=== PATIENT | male | born 1950 | race Two or more races ===

== ENCOUNTER 2024-09-22 07:30 | Day surgery (SDC) | payer OTHER, SELFPAY ==
[2024-09-21 14:34] VITALS: BMI 34.8
[2024-09-22] VITALS (11 sets, daily range): BP systolic 129–170; BP diastolic 60–92; PULSE 65–76; RESP 12–20; TEMP 36.2–36.8; O2SAT 92–99; BMI 34.7
[2024-09-22] MEDS: fentaNYL CIT INJ 50 mCg/ML AMP 2ML (ASD USE ONLY) IV (09:08)
[2024-09-22] MEDS: MIDAZOLAM INJ 1 MG/ML VIAL 2 ML (ASD USE ONLY) 2 MG IV (09:08)
--- NOTE | 2024-09-22 09:51 | SUR.PHASEII ---
0960 patient is awake, alert, breathing unlabored, s/p Colonoscopy under IV sedation, report received from Kelley LAIRD 0937 pt passed gas, will get patient ready to go home
--- NOTE | 2024-09-22 10:33 | SUR.PHASEII ---
1020 patient is awake, alert, breathing unlabored, patient able to ambulate to bathroom and pass gas, meets discharge criteria, discharge instructions given to patient and spouse, patient discharged home in wheelchair with all belongings.
== END 2024-09-22 10:20 | disposition home or self-care (01) ==
PROVIDERS: PCP Internal Medicine; Referring Provider Internal Medicine Gastroenterology; Visit Provider Internal Medicine Gastroenterology
PROC: 0DBE8ZX Excision of Large Intestine, Via Natural or Artificial Opening Endoscopic, Diagnostic (ICD-10-PCS; CPT 45380; principal; 2024-09-22 08:45)
DX: K64.9 Unspecified hemorrhoids (principal); E11.9 Type 2 diabetes mellitus without complications; I10 Essential (primary) hypertension; E78.5 Hyperlipidemia, unspecified; E78.49 Other hyperlipidemia; G47.30 Sleep apnea, unspecified; K57.31 Diverticulosis of large intestine without perforation or abscess with bleeding
CPT/HCPCS: 45378; J2250; J3010

== ENCOUNTER 2025-09-20 08:04 | Emergency (ER) | payer OTHER, SELFPAY ==
--- NOTE | 2025-09-20 08:29 | XR_ITS ---
Examination: CT abdomen and pelvis without contrast. Coronal 3-D reconstructions. Sagittal 2-D reconstructions. Date and time of exam: September 20, 2025, 0841 hours, comparison February 29, 2024 INDICATIONS: Right-sided flank pain beginning 5 days ago CTDI: vol (mGy): 12.2 DLP: (mGycm): 787 Technique: Axial images of the abdomen have been obtained, 3 mm slice thickness Intravenous contrast material has not been administered. Low dose protocols were performed. One or more of the following dose reduction techniques were used; automated exposure control, adjustment of the mA and/or KV according to patient size, use of iterative reconstruction technique. Findings: Mild enlargement cardiac contour No focal liver or splenic lesions Absent gallbladder No pancreatic mass Nodular thickening both adrenal glands Moderate renal scar formation Minimal perinephric stranding 2 mm right renal calculus axial image 119 No hydronephrosis or ureteral calculi Aorta normal size Normal appendix No bowel obstruction Transverse prostate dimension 4.2 cm Urinary bladder intact Severe osteopenia with advanced disc narrowing L5-S1 Moderate narrowing hip joints IMPRESSION: Moderate renal scar formation Perinephric stranding, consider urinary tract infection 2 mm nonobstructing right renal calculus Normal appendix Mild prostatomegaly
[2025-09-20 08:33] VITALS: BP 168/82; PULSE 67; RESP 16; TEMP 36.9; O2SAT 94; BMI 36.8
--- NOTE | 2025-09-20 08:48 | PD.EDRME ---
Rapid Medical Screening Exam RME Arrival date/time: 09/20/25 08:04 75-year-old male presents to the emergency department today for complaints of right flank pain patient for symptom onset 5 days ago Chief Complaint: Back Pain/Injury Vital signs: Vital Signs Temperature 98.5 F 09/20/25 08:33 Pulse Rate 67 09/20/25 08:33 Respiratory Rate 16 09/20/25 08:33 Blood Pressure 168/82 H 09/20/25 08:33 Pulse Oximetry (%) 94 L 09/20/25 08:33 Oxygen Delivery Method Room Air 09/20/25 08:33 Vital signs reviewed by provider: Yes Exam: On exam patient has pain right flank region Clinical Impression: Lab work imaging ordered as well as medication
[2025-09-20] MEDS: METOCLOPRAMIDE 5 MG TABLET 10 MG PO (08:52)
[2025-09-20] MEDS: KETOROLAC INJ 30 MG/ML VIAL IM (08:52)
[2025-09-20 09:11] LABS: Basophils # (Auto) 0.0 Thou/mm3 (0.0-0.2); Basophils % (Auto) 1 % (0-2.5); Eosinophils # (Auto) 0.2 Thou/mm3 (0.0-0.5); Eosinophils % (Auto) 3 % (0-10); Hematocrit 43.9 % (41.0-53.0); Hemoglobin 14.1 g/dL (13.5-16.0); Immature Granulocytes Auto 0.01 Thou/mm3 (0.00-0.00); Lymphocytes # (Auto) 2.3 Thou/mm3 (1.0-4.8); Lymphocytes % (Auto) 43 % (10-50); Mean Corpuscular HGB Conc 32.1 g/dl (31.0-37.0); Mean Corpuscular Hemoglobin 29.5 pg (25.0-35.0); Mean Corpuscular Volume 92 fL (80-100); Monocytes # (Auto) 0.5 Thou/mm3 (0.0-0.8); Monocytes % (Auto) 9 % (0-12); Neutrophils # (Auto) 2.4 Thou/mm3 (1.8-7.7); Neutrophils % (Auto) 45 % (37-80); Nucleated Red Blood Cell # 0.00 Thou/mm3 (0.00-0.00); Nucleated Red Blood Cell % 0 /100 WBC (0); Platelet Count 181 Thou/mm3 (140-440); RDW Standard Deviation 44.7 fL (35.1-43.9); Red Blood Count 4.78 Miln/mm3 (4.50-5.90); White Blood Count 5.4 Thou/mm3 (3.8-10.6)
[2025-09-20 09:34] LABS: Alanine Aminotransferase 25 U/L (10-49); Albumin, Serum 5.0 gm/dL (3.4-4.8); Albumin/Globulin Ratio 2.1 (1.2-2.2); Alkaline Phosphatase 87 U/L (46-116); Anion Gap 7 (7-16); Aspartate Amino Transferase 26 U/L (0-34); BUN/Creatinine Ratio 15 Ratio (12-20); Bilirubin,Total 1.3 mg/dL (0.3-1.2); Blood Urea Nitrogen 12 mg/dL (9-23); Calcium 9.4 mg/dL (8.3-10.6); Calcium (Corrected) 9.4 mg/dL (8.5-10.1); Carbon Dioxide 31.8 mMol/L (20.0-31.0); Chloride 106 mMol/L (98-107); Creatinine (Component) 0.8 mg/dL (0.6-1.3); Estimated Creatinine Clearance 106.7 mL/min (>60); Globulin 2.4 gm/dL (2.3-3.5); Glucose 131 mg/dL (74-106); Lipase 33 U/L (12-53); Osmolality,Calculated 290 (275-295); Potassium 4.4 mMol/L (3.4-5.1); Sodium 145 mMol/L (136-145); Total Protein 7.4 gm/dL (5.7-8.2); eGFR > 60 See Note
[2025-09-20 10:04] VITALS: BP 174/81; PULSE 67; RESP 17; TEMP 36.6; O2SAT 95
--- NOTE | 2025-09-20 10:42 | PD.EDBACK ---
ED Back Injury Pain RME/HPI General Chief Complaint: Back Pain/Injury Stated Complaint: R) SIDE LOWER BACK PAIN, REDNESS R) EYE Arrival date/time: 09/20/25 08:04 RME / HPI RME / HPI Narrative: HISTORY OF PRESENT ILLNESS 75-year-old male presenting with right flank pain that began approximately four days ago and acutely worsened to severe intensity last night. He has a history of nephrolithiasis, with his last episode occurring about eight years ago. Patient denies nausea, vomiting, diarrhea, fever, hematuria, or other urinary symptoms. Pain severity improved from 10 to 7 after administration of pain medication in the emergency department. Related Data Home Medications ?Medication ?Instructions ?Recorded ?Confirmed metformin 500 mg tablet 500 mg PO BIDAC #0 tabs 05/15/17 09/22/24 (Glucophage) glipizide 5 mg tablet 5 mg PO QDAY 09/22/24 09/22/24 losartan 50 mg tablet 50 mg PO QDAY 09/22/24 09/22/24 pregabalin 75 mg capsule 150 mg PO QDAY 09/22/24 09/22/24 Previous Rx's ?Medication ?Instructions ?Recorded acetaminophen 300 mg-codeine 30 mg 1 tab PO Q6H PRN pain #10 tabs 09/20/25 tablet acetaminophen 300 mg-codeine 30 mg 1 tab PO Q6H PRN pain #14 tabs 09/20/25 tablet Allergies Allergy/AdvReac Type Severity Reaction Status Date / Time No Known Allergies Allergy Verified 09/20/25 08:06 Review of Systems Review of Systems Systems Reviewed: All systems reviewed, normal except as documented Past Medical History Past Medical History CARDIAC: Positive Cardiac Disorders, Coronary Artery Disease, Hypercholesterolemia and Hypertension RESPIRATORY: Positive Sleep Apnea GENITOURINARY: Positive Genitourinary Disorders and Benign Prostatic Hyperplasia MUSCULOSKELETAL: Positive Musculoskeletal Disorders ENT: Positive Deafness (LEFT) ENDOCRINE: Positive Endocrine Disorders and Diabetes Mellitus Type 2 PSYCHO/SOCIAL: Positive Depression and Anxiety Surgical History SURGICAL: Positive Coronary Stent (X1), Eye Surgery (right retinal detachment), Bowel Surgery (HEMORRHOIDECTOMY) and Transurethral Resection Social History SMOKING STATUS: Never smoker ED Exam Narrative Physical exam: General: Elderly obese male, no acute distress at present. Eyes: Appear normal with no scleral icterus. HENT: Atraumatic. Moist mucous membranes. Neck: Atraumatic, supple. Cardiac: Regular rate and rhythm, no murmurs. Respiratory: Clear to auscultation bilaterally, no respiratory distress. Abdomen: Soft, non-distended, mild bilateral lower abdominal tenderness to palpation, no rebound or guarding. Skin: Warm, dry, intact. Neurologic: No altered mental status, speech is fluent. Psychological: Cooperative and participatory with examination. Course Course Course Narrative: 1308h: Patient complains of some pain to his right flank. Will give a dose of Tramadol. We reviewed all the results, analysis, and treatment plans. Patient is amenable to discharge. Strict return precautions were outlined. Quality Measures none Orders Category Date Time Status CT abdomen pelvis wo con Stat Exams 09/20/25 08:29 Completed CBC Stat Lab 09/20/25 08:43 Completed Comprehensive Metabolic Panel Stat Lab 09/20/25 08:43 Completed Lipase Stat Lab 09/20/25 08:43 Completed UA, C/S IF [Urinalysis, C/S if Indicated] Stat Lab 09/20/25 11:40 Completed Ketorolac Inj [Toradol Inj] Med 09/20/25 08:29 Discontinued 30 mg IM X1 ONE Metoclopramide [Reglan] Med 09/20/25 08:29 Discontinued 10 mg PO X1 ONE traMADol HCL [Ultram] Med 09/20/25 13:24 Discontinued 50 mg PO NOW ONE Vital Signs Vital signs: Vital Signs Temperature 98.5 F 09/20/25 08:33 Pulse Rate 67 09/20/25 08:33 Respiratory Rate 16 09/20/25 08:33 Blood Pressure 168/82 H 09/20/25 08:33 Pulse Oximetry (%) 94 L 09/20/25 08:33 Oxygen Delivery Method Room Air 09/20/25 08:33 Pulse ox is 94% on room air which is adequate. Back Pain / Injury MDM Narrative MDM Narrative:: This is a 75-year-old male presenting with acute right flank pain that worsened to severe intensity overnight. Differential diagnosis included nonobstructing renal calculus, pyelonephritis, abdominal aortic aneurysm, musculoskeletal back pain, renal mass, and acute coronary syndrome. Objective evaluation included a normal CBC, CMP, and urinalysis, as well as CT abdomen/pelvis showing mild perinephric stranding, 2 mm nonobstructing right renal calculus, and mild prostatomegaly. Physical exam revealed mild bilateral lower abdominal tenderness without rebound or guarding. Pain was managed with ED analgesia with improvement. The plan and disposition were discussed with the patient in real time. Given stable vital signs, absence of concerning findings for surgical or vascular emergencies, and improvement with analgesia, the patient was discharged home with outpatient follow-up, PRN pain medication, and strict return precautions. Patient data External records reviewed:: [facility] previous records (I reviewed H&P on 09/22/2024 ) Clinical information provided by:: patient Social determinants that could affect healthcare access:: none Patient has the following chronic illnesses:: Hypertension, diabetes, hyperlipidemia How is presenting disease/condition affected by chronic disease/condition?: uneffected by Evaluation data The following diagnostics were reviewed and interpreted by me:: lab results and radiology exam(s) Lab and/or radiology exams considered but not ordered:: None Interpretation Summary: Ordering Physician: Shannon BARTLETT),Ned JOYCE Date of Service: 09/20/25 Procedure(s): CT abdomen pelvis wo con Accession Number(s): [id number] cc: Shannon BARTLETT),Ned JOYCE; Adriel Butler MD; Anoop Worley MD~ Examination: CT abdomen and pelvis without contrast. Coronal 3-D reconstructions. Sagittal 2-D reconstructions. Date and time of exam: September 20, 2025, 0841 hours, comparison February 29, 2024 INDICATIONS: Right-sided flank pain beginning 5 days ago CTDI: vol (mGy): 12.2 DLP: (mGycm): 787 Technique: Axial images of the abdomen have been obtained, 3 mm slice thickness Intravenous contrast material has not been administered. Low dose protocols were performed. One or more of the following dose reduction techniques were used; automated exposure control, adjustment of the mA and/or KV according to patient size, use of iterative reconstruction technique. Findings: Mild enlargement cardiac contour No focal liver or splenic lesions Absent gallbladder No pancreatic mass Nodular thickening both adrenal glands Moderate renal scar formation Minimal perinephric stranding 2 mm right renal calculus axial image 119 No hydronephrosis or ureteral calculi Aorta normal size Normal appendix No bowel obstruction Transverse prostate dimension 4.2 cm Urinary bladder intact Severe osteopenia with advanced disc narrowing L5-S1 Moderate narrowing hip joints IMPRESSION: Moderate renal scar formation Perinephric stranding, consider urinary tract infection 2 mm nonobstructing right renal calculus Normal appendix Mild prostatomegaly Dictated By: Adriel Butler MD Signed By: <Electronically signed by Adriel Butler MD in OV> 09/20/25 0949 Medications / Prescriptions Medications or Prescriptions considered but not ordered:: None Medication administrations:: Medication Administration History Discontinued Medications Ketorolac Tromethamine (Ketorolac Inj 30 Mg/Ml Vial) 30 mg IM X1 ONE Stop: 09/20/25 08:30 Last Admin: 09/20/25 08:52 Dose: 30 mg Documented By: LP Metoclopramide HCl (Metoclopramide 5 Mg Tablet) 10 mg PO X1 ONE Stop: 09/20/25 08:30 Last Admin: 09/20/25 08:52 Dose: 10 mg Documented By: LP Tramadol HCl (Tramadol Hcl 50 Mg Tablet) 50 mg PO NOW ONE Stop: 09/20/25 13:25 Last Admin: 09/20/25 13:33 Dose: 50 mg Documented By: MG See above Consultations Consultation(s) initiated? (list below): No Diagnosis Most likely diagnosis given after review of the tests above:: Acute right flank pain Admission Indicated Admission indicated?: not indicated Explain why admission is indicated or not indicated:: With no condition needing emergent intervention, there was no indication for admission. Admission Request Was there a request for admission?: No Disposition Plan Disposition Plan: Discharge Discharge Attestation Discharge Attestation: The patient and all family members were given an opportunity to ask questions and understood the discharge instructions. Discharge instructions specifically effects, indications for sooner follow up or return to the emergency department, and the expected course of current diagnosis. Patient condition: Stable Discharge Plan Plan Patient Disposition: HOME (Self Care) Patient condition on transfer: Stable Prescriptions/Referrals Prescriptions/Med Rec: New acetaminophen-codeine 300-30 mg tablet 1 tab PO Q6H PRN (Reason: pain) Qty: 10 0RF acetaminophen-codeine 300-30 mg tablet 1 tab PO Q6H PRN (Reason: pain) Qty: 14 0RF No Action metformin [Glucophage] 500 MG tablet 500 mg PO BIDAC Qty: 0 losartan 50 mg tablet 50 mg PO QDAY Patient Comments: TAKE 1 TABLET BY MOUTH DAILY glipizide 5 mg Tablet 5 mg PO QDAY pregabalin 75 mg Capsule 150 mg PO QDAY Referrals: Anoop Worley MD [Primary Care Provider, Nephrology] - In 1 week Problem List Clinical Impression: Acute right flank pain Patient/Caregiver Discharge Instructions Education Materials: Complementary Care for Pain, ED Flank Pain, Uncertain Cause Print Language: Mohawk Stand Alone Forms: [facility] Award Info., Patient Portal Info Letter
[2025-09-20 11:46] LABS: Collection Type, Urine Clean Catch
[2025-09-20 11:59] LABS: Bacteria,Urine Rare; Bilirubin,Urine Negative (Negative); Blood,Urine Negative (Negative); Color,Urine Yellow (Lt Yel-Yel); Culture Indicated,Urine Not Indicated; Glucose, Urine Negative (Negative); Ketones,Urine Negative (Negative); Leukocyte Esterase,Urine Negative (Negative); Nitrite,Urine Negative (Negative); PH,Urine 6.5 (5.0-7.0); Protein,Urine Trace (Neg - Trace); RBC,Urine 6 /hpf (0-3); Specific Gravity,Urine 1.025 (1.001-1.035); Squamous Epithelial Cell,Urine < 1 /hpf (0-5); Urobilinogen,Urine 2.0 mg/dL (0.0-1.0); WBC,Urine 2 /hpf (0-5)
[2025-09-20 12:01] LABS: Clarity,Urine Hazy (Clear/Hazy)
[2025-09-20 14:03] VITALS: BP 189/84; PULSE 62; RESP 12; O2SAT 94
== END 2025-09-20 14:03 | disposition home or self-care (01) ==
PROVIDERS: Nurse Practitioner Primary Care; Emergency Provider Family Medicine; PCP Internal Medicine
DX: N20.0 Calculus of kidney (principal); N40.1 Benign prostatic hyperplasia with lower urinary tract symptoms; Z95.5 Presence of coronary angioplasty implant and graft
CPT/HCPCS: 36415; 74176; 80053; 81001; 83690; 85025; 96372; 99283; J1885; A9270